=== PATIENT | female | born 2000 | race Hispanic/Latino ===

== ENCOUNTER 2019-08-08 14:34 | Emergency (ER) | payer OTHER | END 2019-08-08 15:13 | disposition home or self-care (01) | LOC: ERS 14:34 | DX: Z20.828 Contact with and (suspected) exposure to other viral communicable diseases (principal) | CPT/HCPCS: 99283 ==

== ENCOUNTER 2021-01-21 07:59 | Outpatient (CLI) | payer MEDICAID | END 2021-01-21 08:00 | disposition home or self-care (01) | LOC: BICULT 07:59 | PROVIDERS: ATTEND Nurse Practitioner Women's Health | DX: R10.2 Pelvic and perineal pain (principal); N83.8 Other noninflammatory disorders of ovary, fallopian tube and broad ligament | CPT/HCPCS: 76856 ==